=== PATIENT | female | born 1995 | race Hispanic/Latino ===

== ENCOUNTER 2018-08-22 08:49 | Outpatient (CLI) | payer OTHER ==
--- NOTE | 2018-08-22 09:28 | ULT ---
SOFT TISSUE ULTRASOUND: INDICATIONS: Palpable mass of the superior thorax. FINDINGS: Localized sonographic imaging at the site of palpable concern does not reveal a focal mass, cyst, or other localizable pathology. IMPRESSION: No focal mass or other localizable pathology identified at the site of concern within the superior th orax to account for a palpable region of concern. If there is persistent concern for mass, consider dedicated MRI with and without contrast for further characterization. POS: [facility]
== END 2018-08-22 08:50 | disposition home or self-care (01) ==
LOC: BICULT 08:49
PROVIDERS: ATTEND Family Medicine
DX: R22.2 Localized swelling, mass and lump, trunk (principal)
CPT/HCPCS: 76999

== ENCOUNTER 2019-03-20 08:24 | Outpatient (CLI) | payer OTHER ==
--- NOTE | 2019-03-20 11:01 | ULT ---
ULTRASOUND GALLBLADDER RIGHT UPPER QUADRANT: HISTORY: Gallbladder stones. COMPARISON: None. FINDINGS: Real-time, gonzalez scale, ad color evaluation of the right upper quadrant of the abdomen was performed. Visualized portion of the aorta, IVC, and pancreas was unremarkable. Hepatic echotexture is normal w ithout mass. Liver measures 16.2 cm in length. There is cholelithiasis without cholecystitis. Common bile duct i s normal. Portal vein is patent with antegrade flow. No pericholecystic fluid. The right kidney measures 10.6 x 5 x 4.7 cm without mass, hydronephrosis, or abnormal calcifications. IMPRESSION: Cholelithiasis without cholecystitis. POS: [facility]
== END 2019-03-20 08:25 | disposition home or self-care (01) ==
LOC: BICULT 08:24
PROVIDERS: ATTEND Family Medicine
DX: R10.11 Right upper quadrant pain (principal); K80.20 Calculus of gallbladder without cholecystitis without obstruction
CPT/HCPCS: 76705